=== PATIENT | male | born 1975 | race Caucasian/White ===

== ENCOUNTER 2018-11-15 10:48 | Emergency (ER) | payer MEDICAID ==
--- NOTE | 2018-11-15 13:10 | ED Physician Documentation ---
PD HPI HEADACHE - Stated complaint Stated Complaint: HIGH BP/DE DIOS - Chief complaint Chief Complaint: General - History obtained from History obtained from: Patient - History of Present Illness Timing - onset: How many days ago (several) Timing - onset during: Rest Timing - duration: Weeks (several days) Timing - details: Gradual onset, Intermittant, Waxing and waning Worst headache ever?: No: Worst headache ever? Location: Front Quality: Throbbing, Tightness Associated symptoms: Other (nasal congestion and mild cough since moved to the area few weeks ago.). No: Fever, Nausea, Vomiting, Vision changes Contributing factors: No: Recent illness (but has some allergy symptoms) Similar symptoms before: Has not had sx before Recently seen: Not recently seen (ran out of BP meds due to insurance not accepting local providers, so having time to get new one. His insurance changes in November, so will be able to get local one.) Review of Systems Constitutional: denies: Fever, Chills Eyes: denies: Decreased vision, Photophobia Nose: reports: Congestion, Sinus pressure / pain Throat: denies: Sore throat Cardiac: denies: Chest pain / pressure Respiratory: reports: Cough. denies: Dyspnea Neurologic: reports: Headache (frontal). denies: Generalized weakness, Focal weakness, Numbness, Altered mental status PD PAST MEDICAL HISTORY - Past Medical History Cardiovascular: Hypertension - Present Medications Home Medications: Ambulatory Orders Medication Instructions Recorded Confirmed Amlodipine Besylate 5 mg PO 11/15/18 Amlodipine Besylate 5 mg PO DAILY #30 tablet 11/15/18 Dexamethasone [Decadron] 4 mg PO DAILY #7 tablet 11/15/18 Divalproex Sodium [Depakote] 1,000 mg PO 11/15/18 Hydrochlorothiazide 25 mg PO 11/15/18 Mirtazapine 30 mg PO 11/15/18 clonazePAM [KlonoPIN] 1 mg PO DAILY 11/15/18 11/15/18 hydroCHLOROthiazide 25 mg PO DAILY #30 tablet 11/15/18 [Hydrochlorothiazide] PD ED PE NORMAL - Vitals Vital signs reviewed: Yes - General General: Alert and oriented X 3, No acute distress, Well developed/nourished - HEENT HEENT: PERRL, EOMI (fundi normal), Ears normal, Pharynx benign, Other (some frontal sinus tender to percussion) - Neck Neck: Supple, no meningeal sign, No adenopathy - Cardiac Cardiac: RRR, No murmur - Respiratory Respiratory: Clear bilaterally - Abdomen Abdomen: Soft, Non tender - Derm Derm: Normal color, Warm and dry - Neuro Neuro: Alert and oriented X 3, No motor deficit, Normal speech Results - Vitals Vitals: Oxygen O2 Source Room air PD MEDICAL DECISION MAKING - ED course Complexity details: considered differential (headache sounds sinus-like with congestion, and could relate to high BP as well. ), d/w patient Departure - Departure Disposition: Home, Self Care Clinical Impression: Frontal headache Hypertension Qualifiers: Hypertension type: unspecified Qualified Code(s): I10 - Essential (primary) hypertension Condition: Stable Record reviewed to determine appropriate education?: Yes Instructions: ED Cephalgia Unspecified, ED HTN Established Prescriptions: Amlodipine Besylate 5 mg PO DAILY #30 tablet Dexamethasone [Decadron] 4 mg PO DAILY #7 tablet hydroCHLOROthiazide [Hydrochlorothiazide] 25 mg PO DAILY #30 tablet Comments: Resume your blood pressure medicines I wrote prescriptions for these for a couple of months. He will want to provide find a new provider when your insuran ce changes. Your headache may be partly from sinus and so I wrote for some anti-inflammatories for the next week as well. Use Tylenol or ibuprofen if needed for pains. Recheck if not improved over the next several days once on medicines. Discharge Date/Time: 11/15/18 13:46
[2018-11-15 13:16] VITALS: BP 174/94
== END 2018-11-15 13:46 | disposition home or self-care (01) ==
LOC: ED 10:48
DX: R51 Headache (principal); I10 Essential (primary) hypertension; T50.2X6A Underdosing of carbonic-anhydrase inhibitors, benzothiadiazides and other diuretics, initial encounter; Z91.138 Patient's unintentional underdosing of medication regimen for other reason
CPT/HCPCS: 99283